=== PATIENT | female | born 1955 | race Caucasian/White ===

== ENCOUNTER 2019-02-26 22:31 | Emergency (ER) | payer SELFPAY ==
[~2019-02-26] VITALS: Ht 147.3 cm; Wt 73.5 kg
[2019-02-26 22:39] VITALS: Ht 147.3 cm; Wt 73.5 kg
[2019-02-27 00:05] LABS: CALCIUM 8.9 mg/dL (8.5-10.1); CARBON DIOXIDE 28.4 mmol/L (21-32); CHLORIDE SERUM 103 mmol/L (98-107); CREATININE SERUM 0.8 mg/dL (0.6-1.0); GFR1 > 60 mL/min; GLUCOSE SERUM 201 mg/dL (74-106); POTASSIUM SERUM 3.8 mmol/L (3.5-5.1); SODIUM SERUM 138 mmol/L (136-145)
[2019-02-27 00:13] LABS: ALBUMIN 3.5 g/dL (3.4-5.0); ALKALINE PHOSPHATASE 96 U/L (46-116); ALT/SGPT 84 U/L (14-59); AST/SGOT 44 U/L (15-37); BILIRUBIN TOTAL 0.3 mg/dL (0.20-1.00); FREE T4 0.95 ng/dL (0.76-1.46); TOTAL PROTEIN, SERUM 8.1 g/dL (6.4-8.2)
[2019-02-27 00:26] LABS: BASOPHIL % 0.5 % (0-2); PLATELET COUNT 262 x10^3mcL (130-400); RED CELL DISTRIBUTION WIDTH 13.1 % (11.5-14.5)
[2019-02-27 02:09] VITALS: BP 142/90
== END 2019-02-27 02:00 | disposition home or self-care (01) ==
LOC: ED 22:31
PROVIDERS: Emergency Medicine
DX: G51.0 Bell's palsy (principal); E11.65 Type 2 diabetes mellitus with hyperglycemia
CPT/HCPCS: 36415; 82962; 84439; J7512